=== PATIENT | male | born 1965 | race African-American/Black ===

== ENCOUNTER 2019-09-19 19:18 | Emergency (ER) | payer MEDICARE, MEDICAID ==
[~2019-09-19] VITALS: Ht 180.3 cm; Wt 127.0 kg
[2019-09-19 19:30] VITALS: BP 141/85
[2019-09-19] MEDS ORDERED: Methocarbamol 750mg tab ORAL ONE (19:30)
[2019-09-19] MEDS ORDERED: Ketorolac 30mg Inj IM ONE (19:30)
--- NOTE | 2019-09-19 19:30 | NUR ---
ED Nurse Note: pt raimundo from [place] right knee pain 9/ x4 hours. Pt stated that he has previous hx of HIV and osteoarthritis and anxiety. Pt HR elevated, ERPA aware. Pt aao x 4, unable to ambulate at this time d/t pain. Pt states right knee is inflammed. Pt states he only takes ibuprofen for his osteoarthritis. Awaiting ERPA at bedside.
--- NOTE | 2019-09-19 19:40 | NUR ---
ED Nurse Note: xray at bedside
--- NOTE | 2019-09-19 19:42 | NUR ---
ED Nurse Note: all medications administered, pt tolerated well no ss of distress noted. will continue to monitor.
--- NOTE | 2019-09-19 19:50 | NUR ---
ED Nurse Note: ERPA at bedside
--- NOTE | 2019-09-19 20:00 | NUR ---
ED Nurse Note: ERPA at bedside
--- NOTE | 2019-09-19 20:09 | Emergency Room Report ---
History of Present Illness General Chief Complaint: Pain Present Illness HPI 53-year-old male with history of chronic knee pain here complaining of worsening pain brought in by paramedics. Denies any recent fall or injury. Swelling is noted right kneecap. Denies any pain radiation tingling numbness. No calf tenderness noted. Has full range of motion of lower extremity. Patient request to stay here or be sent to homeless shelters as patient has no place to live. Denies any other medical condition. Has not taken medication for symptom relief. Reports that he cannot walk however he ambulated in his room. Patient was provided with a walker as well as pain medication. Patient is neurovascularly intact. Allergies: Coded Allergies: No Known Allergies (Unverified , 09/19/19) COVID-19 Screening Contact w/high risk pt: No Experienced COVID-19 symptoms?: No COVID-19 Testing performed BEVERAGE SERVER: No Patient History Past Medical History: see triage record Past Surgical History: unable to obtain Pertinent Family History: unable to obtain Reviewed Nursing Documentation: PMH: Agreed; PSxH: Agreed Review of Systems All Other Systems: negative except mentioned in HPI Physical Exam Vital Signs Date Time Temp Pulse Resp B/P (MAP) Pulse Ox O2 Delivery O2 Flow Rate FiO2 09/19/19 19:20 100.0 110 16 141/85 (103) 97 Room Air Sp02 EP Interpretation: reviewed, normal General Appearance: no apparent distress, alert, GCS 15, non-toxic Head: normocephalic, atraumatic Eyes: bilateral eye normal inspection, bilateral eye PERRL ENT: hearing grossly normal, normal pharynx, no angioedema, normal voice Neck: full range of motion, supple/symm/no masses Respiratory: chest non-tender, lungs clear, normal breath sounds, speaking full sentences Cardiovascular #1: regular rate, rhythm, no edema Cardiovascular #2: 2+ dorsalis pedis (R), 2+ dorsalis pedis (L) Gastrointestinal: normal bowel sounds, non tender, soft, non-distended, no guarding, no rebound Rectal: deferred Genitourinary: no CVA tenderness Musculoskeletal: back normal, no calf tenderness, non-tender, swelling - Minimal swelling of right knee Neurologic: alert, motor strength/tone normal, oriented x3, sensory intact, responsive, speech normal Psychiatric: judgement/insight normal, memory normal, mood/affect normal, no suicidal/homicidal ideation Skin: no rash Lymphatic: no adenopathy Medical Decision Making PA Attestation All diagnosis and treatment plans were discussed and reviewed by my supervising physician Dr. Spencer Diagnostic Impression: Primary Impression: Chronic knee pain ER Course 53-year-old male with history of chronic knee pain here complaining of worsening pain brought in by paramedics. Denies any recent fall or injury. Swelling is noted right kneecap. Denies any pain radiation tingling numbness. No calf tenderness noted. Has full range of motion of lower extremity. Patient request to stay here or be sent to homeless shelters as patient has no place to live. Denies any other medical condition. Has not taken medication for symptom relief. Reports that he cannot walk however he ambulated in his room. Patient was provided with a walker as well as pain medication. Patient is neurovascularly intact. Ddx considered but are not limited to: Knee sprain, strain, fracture, contusion , meniscus tear injury Vital signs: are WNL, pt. is afebrile H&PE are most consistent with: Chronic knee pain ORDERS: Knee x-ray, Motrin, Voltaren gel due to patient arthritic changes on the x-ray ER intervention: Toradol, Robaxin DISCHARGE: At this time pt. is stable for d/c to home. Will provide printed patient care instructions, and any necessary prescriptions. Care plan and follow up instructions have been discussed with the patient prior to discharge. Patient was provided with a walker, patient to go to shelters as he was given a list to, patient also was given a list from the practices. Worsening symptoms return to the emergency room Other X-Ray Diagnostic Results Other X-Ray Diagnostic Results : X-Ray ordered: Right knee # of Views/Limited Vs Complete: 3 View Indication: Pain EP Interpretation: Yes PA Xray: Interpretation reviewed, by supervising MD, and agrees with findings. Interpretation: no dislocation, no soft tissue swelling, no fractures Impression: No acute disease Electronically Signed by: Javon Gu PA-C Last Vital Signs Date Time Temp Pulse Resp B/P (MAP) Pulse Ox O2 Delivery O2 Flow Rate FiO2 09/19/19 19:20 100.0 110 16 141/85 (103) 97 Room Air Disposition: HOME, SELF-CARE Condition: Stable Scripts Diclofenac Sodium (VOLTAREN) 100 Gm Gel..gram. 2 GM TP TID, #100 GM Prov: Javon Pinedo 09/19/19 Ibuprofen* (MOTRIN*) 600 Mg Tablet 600 MG ORAL Q6H PRN for For Pain, #30 TAB 0 Refills Prov: Javon Pinedo 09/19/19 Referrals: NOT CHOSEN [facility]/MD,REFERRING (PCP) Patient Instructions: Chronic Pain Additional Instructions: Take medication as directed, follow primary care provider, if worsening symptom return to the emergency room Javon Pinedo Sep 19, 2019 20:08
--- NOTE | 2019-09-19 20:25 | NUR ---
ED Nurse Note: Pt states pain is 4/10. Reassessment of pt gait: pt ambulates with steady gait, no ss of distress noted. will continue to monitor.
[2019-09-19] MEDS ORDERED: VOLTAREN100 G1 TP (20:47)
[2019-09-19] MEDS ORDERED: IBUPROFEN600 M1 ORAL (20:47)
[2019-09-19 20:53] VITALS: BP 139/76
--- NOTE | 2019-09-19 20:53 | NUR ---
ER DISCHARGE NOTE: Patient is cleared to be discharged home per ERMD, pt is aox4, 99% on room air, with stable vital signs. pt was given dc and prescription instructions, pt was able to verbalize understanding, pt id band removed. pt is able to ambulate with steady gait. pt took all belongings. pt given resources, food, and drinks. Pt refused walker provided and pt refused additional clothing. ERMD aware. Pt able to navigate community without assisstance. Pt aao x 4, ambulates with steady gait.
--- NOTE | 2019-09-19 22:35 | Diagnostic Imaging Report ---
EXAM: XR Right Knee, 3 Views CLINICAL HISTORY: PAIN TECHNIQUE: Three views of the right knee. COMPARISON: None FINDINGS: Bones/joints: There is no acute fracture or dislocation. There is tricompartmental osteoarthritis which is moderate in severity. Soft tissues: There is a moderate suprapatellar effusion. There is soft tissue swelling. IMPRESSION: No acute fracture or dislocation.
== END 2019-09-19 20:53 | disposition home or self-care (01) ==
LOC: EDUNIT# 19:18 → EDBD 19:18 → EMR 19:47
DX: G89.29 Other chronic pain (principal); M25.561 Pain in right knee; M25.461 Effusion, right knee
CPT/HCPCS: 73562; 96372; 99283; J1885